=== PATIENT | female | born 1985 ===

== ENCOUNTER 2023-10-04 04:00 | Emergency (ER) | payer OTHER ==
[2023-10-04 04:33] LABS: BASOPHILS ABSOLUTE AUTO 0.03 K/uL (0.00-0.20); BASOPHILS PERCENT AUTO 0.2 % (0.0-1.0); EOSINOPHILS ABSOLUTE AUTO 0.16 K/uL (0.00-0.45); EOSINOPHILS PERCENT AUTO 1.3 % (0.0-6.0); HEMATOCRIT 39.1 % (37.0-47.0); HEMOGLOBIN 12.9 g/dL (12.0-16.0); IMMATURE GRAN ABSOLUTE AUTO 0.04 K/uL (0.00-0.05); IMMATURE GRAN PERCENT AUTO 0.3 % (0.0-0.4); LYMPHOCYTES ABSOLUTE AUTO 3.31 K/uL (1.00-4.80); LYMPHOCYTES PERCENT AUTO 26.2 % (24.0-44.0); MEAN CORPUSCULAR HEMOGLOBIN 21.4 pg (28.0-32.0); MONOCYTES ABSOLUTE AUTO 0.57 K/uL (0.00-0.80); MONOCYTES PERCENT AUTO 4.5 % (0.0-8.0); NEUTROPHILS PERCENT AUTO 67.5 % (41.0-71.0); PLATELET COUNT,PLT 250 K/uL (150-400); RED BLOOD CELL COUNT 6.04 M/uL (4.10-5.30); WHITE BLOOD CELL COUNT,WBC 12.61 K/uL (3.9-11.3)
[2023-10-04] MEDS: Morphine 4 MG/ML Syringe IVPUSH ONE (04:46)
[2023-10-04] MEDS: Ondansetron 4 MG/2 ML SDV IVPUSH ONE (04:46)
[2023-10-04] MEDS: Sodium Chloride 0.9% 1,000 ML IV ONE (04:46)
[2023-10-04 04:49] LABS: MEAN CORPUSCULAR VOLUME 64.7 fL (83.0-99.0)
[2023-10-04 04:53] LABS: A/G RATIO 0.8 (0.9-1.6); ALBUMIN 3.7 g/dL (3.4-5.0); BILIRUBIN TOTAL 0.6 mg/dL (0.2-1.0); CALCIUM 8.6 mg/dL (8.5-10.1); CARBON DIOXIDE,CO2 26.5 mmol/L (21.0-32.0); CREATININE 0.5 mg/dL (0.6-1.0); EST CRCL DRUG DOSING (CG) 109.58 mL/min; POTASSIUM,K 4.3 mmol/L (3.5-5.1); PROTEIN TOTAL,TP 8.1 g/dL (6.4-8.2)
[2023-10-04 04:54] LABS: APPEARANCE,URINE CLEAR; BILIRUBIN,URINE NEGATIVE (NEGATIVE); COLOR,URINE YELLOW; GLUCOSE,URINE NEGATIVE (NEGATIVE); KETONES,URINE NEGATIVE (NEGATIVE); LEUKOCYTE ESTERASE,URINE NEGATIVE (NEGATIVE); NITRITE,URINE NEGATIVE (NEGATIVE); OCCULT BLOOD,URINE TRACE-INTACT (NEGATIVE); PROTEIN,URINE NEGATIVE (NEGATIVE); UROBILINOGEN,URINE 0.2 EU/dL (<2.0)
[2023-10-04 05:03] LABS: WBC,URINE 0-1 (0-5/HPF)
[2023-10-04 05:04] LABS: BACTERIA,URINE RARE (NEGATIVE); MUCUS,URINE MODERATE (NONE-MOD); SQUAMOUS EPITHELIAL CELLS,UR OCCASIONAL
== END 2023-10-04 05:50 | disposition home or self-care (01) ==
LOC: MW.ED 04:00
DX: R10.13 Epigastric pain (principal); Z91.013 Allergy to seafood; Z75.8 Other problems related to medical facilities and other health care
CPT/HCPCS: 36415; 80053; 81001; 81025; 83690; 85025; 96361; 96374; 96375; 99284; J2270; J2405; J7030